=== PATIENT | female | born 1980 | race African-American/Black ===

== ENCOUNTER → 2020-07-08 | Outpatient (CLI) | payer BC ==
[~2020-07-08] MED LIST: IBUPROFEN 600600 M1 PO; IRON OR; NORCO 5-325 TA1 EACH PO; PROAIR HFA8.5 GM IH
== END ==
LOC: M.LAB 15:54
PROVIDERS: ATTEND Podiatrist
DX: Z20.828 Contact with and (suspected) exposure to other viral communicable diseases (principal)